=== PATIENT | male | born 1990 | race Caucasian/White ===

== ENCOUNTER 2020-04-24 20:50 | Emergency (ER) | payer OTHER ==
[~2020-04-24] VITALS: Ht 190.5 cm; Wt 65.8 kg
[2020-04-24] MEDS ORDERED: IBUP400 PO (21:27)
[2020-04-24] MEDS ORDERED: PENVK500 PO (21:49)
[2020-04-24] MEDS ORDERED: TRAM50 PO (21:49)
== END 2020-04-24 22:03 | disposition home or self-care (01) ==
LOC: ER 20:50
DX: K02.9 Dental caries, unspecified (principal); F17.200 Nicotine dependence, unspecified, uncomplicated; Z88.2 Allergy status to sulfonamides
CPT/HCPCS: 99283

== ENCOUNTER → 2023-10-12 | Outpatient (CLI) | payer OTHER ==
[~2023-10-12] MED LIST: IBUP400 PO; PENVK500 PO; TRAM50 PO
[2023-10-14 12:11] LABS: CHLAMYDIA BY NAA Negative (Negative); GONOCOCCUS BY NAA Negative (Negative); TRICH VAG BY NAA Negative (Negative)
== END ==
LOC: LAB 13:15 → LAB SHORT 13:15
PROVIDERS: Registered Nurse Community Health
DX: Z11.3 Encounter for screening for infections with a predominantly sexual mode of transmission (principal)
CPT/HCPCS: 87491; 87591; 87661

== ENCOUNTER 2023-12-14 17:41 | Emergency (ER) | payer OTHER ==
[~2023-12-14] VITALS: Ht 190.5 cm; Wt 68.0 kg
[2023-12-14 17:48] VITALS: BP 137/75
[2023-12-14] MEDS ORDERED: GLYDO11 ML TOP (17:51)
== END 2023-12-14 17:53 | disposition home or self-care (01) ==
LOC: ER 17:41
DX: K02.9 Dental caries, unspecified (principal); Z88.2 Allergy status to sulfonamides; Z79.899 Other long term (current) drug therapy; F17.290 Nicotine dependence, other tobacco product, uncomplicated
CPT/HCPCS: 99282

== ENCOUNTER 2024-01-09 01:34 | Emergency (ER) | payer OTHER ==
[~2024-01-09] VITALS: Ht 190.5 cm; Wt 68.0 kg
[~2024-01-09 01:34] MED LIST changes: +GLYDO11 ML TOP
[2024-01-09 03:28] VITALS: BP 133/84
[2024-01-09] MEDS ORDERED: Amoxicillin/Clavulanate K 875 MG Tab PO ONE (04:35)
[2024-01-09] MEDS ORDERED: AMOCLA875 PO (04:36)
== END 2024-01-09 04:54 | disposition home or self-care (01) ==
LOC: ER 01:34
DX: K04.7 Periapical abscess without sinus (principal); Z88.2 Allergy status to sulfonamides; F17.210 Nicotine dependence, cigarettes, uncomplicated; F17.290 Nicotine dependence, other tobacco product, uncomplicated
CPT/HCPCS: 99282; A9270

== ENCOUNTER 2024-01-09 11:33 | Emergency (ER) | payer OTHER ==
[~2024-01-09] VITALS: Ht 193 cm; Wt 68.0 kg
[~2024-01-09 11:33] MED LIST changes: +AMOCLA875 PO
[2024-01-09 12:02] LABS: BASOPHILS ABSOLUTE AUTO 0.06 K/mm3 (0.00-0.23); BASOPHILS PERCENT AUTO 0 % (0-2); EOSINOPHILS ABSOLUTE AUTO 0.13 K/mm3 (0.00-0.68); EOSINOPHILS PERCENT AUTO 1 % (0-6); Hematocrit 45.7 % (37.0-53.0); Hemoglobin 15.6 g/dL (13.5-17.5); IMMATURE GRAN ABSOLUTE AUTO 0.03 K/mm3 (0.00-0.10); IMMATURE GRAN PERCENT AUTO 0 % (0-1); LYMPHOCYTES ABSOLUTE AUTO 2.14 K/mm3 (0.84-5.20); LYMPHOCYTES PERCENT AUTO 16 % (21-46); MONOCYTES PERCENT AUTO 9 % (4-13); Mean Corpuscular HGB 30.6 pg (26.0-34.0); Mean Corpuscular HGB Conc 34.1 g/dL (31.5-36.5); Mean Corpuscular Volume 90 fL (80-100); Mean Platelet Volume 8.7 fL (9.1-12.4); NEUTROPHILS ABSOLUTE AUTO 9.88 K/mm3 (1.96-9.15); NEUTROPHILS PERCENT AUTO 74 % (41-73); Platelet Count 317 K/mm3 (150-400); RDW Coefficient Variation 13.2 % (11.7-14.2); RDW Standard Deviation 43.4 fL (35.1-46.3); White Blood Cell Count 13.44 K/mm3 (4.00-11.30)
[2024-01-09 12:37] LABS: Albumin, Blood 4.1 g/dL (3.4-5.0); Bilirubin, Total 0.6 mg/dL (0.1-1.0); Bun/Creatinine Ratio 6.7 (12.0-20.0); Calcium, Blood 8.9 mg/dL (8.5-10.1); Creatinine, Blood 0.75 mg/dL (0.60-1.20); Globulin, Blood 4.1 g/dL (2.2-4.0); Potassium, Blood 3.5 mmol/L (3.5-5.5); Total Protein, Blood 8.2 g/dL (6.4-8.2)
[2024-01-09] MEDS ORDERED: Amoxicillin/Clavulanate K 875 MG Tab PO ONE (13:10)
[2024-01-09 13:30] VITALS: BP 116/73
[2024-01-09] MEDS ORDERED: Amoxicillin/Clavulanate K 875 MG Tab PO SCH (21:00)
== END 2024-01-09 13:30 | disposition home or self-care (01) ==
LOC: ER 11:33
PROVIDERS: Physician Assistant
DX: K04.7 Periapical abscess without sinus (principal); Z88.2 Allergy status to sulfonamides; F17.210 Nicotine dependence, cigarettes, uncomplicated
CPT/HCPCS: 70491; 80053; 85025; 86140; 99283; A9270; Q9967